=== PATIENT | male | born 1965 | race Two or more races ===

== ENCOUNTER 2019-12-19 20:25 | Emergency (ER) | payer OTHER ==
[~2019-12-19] VITALS: Ht 167.6 cm; Wt 65.8 kg
[2019-12-19] MEDS ORDERED: ONDANSETRON HCL 4 MG/2 ML VIAL IV ONE (20:30)
[2019-12-19] MEDS ORDERED: KETOROLAC TROMETH 30 MG/ML 1ML VIAL IV ONE (20:30)
[2019-12-19] MEDS ORDERED: HYDROmorphone HCL 2 MG/ML VL IV ONE ×2 (20:30→22:15)
[2019-12-19 21:19] LABS: Urine Amorphous Crystal FEW /hpf (None Seen); Urine Bacteria NONE SEEN /hpf (None Seen); Urine Blood 1+ /uL (Negative); Urine Specific Gravity 1.008 (1.001-1.035); Urine WBC 1 /hpf (0 - 3)
[2019-12-19 21:40] LABS: Basophils # (auto) 0 10 ^3/uL (0-0.2); Basophils % (auto) 0.5 % (0.0-2.0); Eosinophils # (auto) 0.1 10 ^3/uL (0-0.8); Eosinophils % (auto) 0.6 % (0.0-7.0); Hematocrit 44.7 % (41.0-53.0); Lymphocytes # (auto) 1.4 10 ^3/uL (0.4-5.4); Lymphocytes % (auto) 16.1 % (10.0-50.0); Mean Corpuscular Hemoglobin 28.5 pg (28.0-32.0); Mean Corpuscular Hgb Conc. 33.5 g/dL (32.0-36.0); Mean Corpuscular Volume 85.1 fL (80.0-100.0); Monocytes # (auto) 0.7 10 ^3/uL (0-1.3); Monocytes % (auto) 7.5 % (0.0-12.0); Neutrophils # (auto) 6.7 10 ^3/uL (1.6-8.6); Neutrophils % (auto) 75.3 % (37.0-80.0); Nucleated Red Blood Cells % 0.1 %; Platelet Count (auto) 257 10^3/uL (140-450); Red Blood Cells 5.26 10^6/uL (4.5-5.90); Red Cell Distribution Width 13.7 % (11.8-14.3); White Blood Cell 8.8 10^3/uL (4.4-10.8)
[2019-12-19 21:56] LABS: Albumin 3.9 g/dL (3.4-5.0); BUN/Creatinine Ratio 12.1; Calcium 8.7 mg/dL (8.5-10.1)
[2019-12-19 21:59] LABS: Bilirubin, Total 0.4 mg/dL (0.2-1.0); Total Protein 7.2 g/dL (6.4-8.2)
[2019-12-19] MEDS ORDERED: POTASSIUM EFFERVESENT TAB 25 MEQ PO ONE (22:30)
[2019-12-19 23:00] VITALS: BP 129/78
== END 2019-12-19 23:21 | disposition home or self-care (01) ==
LOC: ER 20:25 → EDBD 20:25 → ER 23:21
DX: N23 Unspecified renal colic (principal); N20.1 Calculus of ureter; E87.6 Hypokalemia
CPT/HCPCS: 36415; 74176; 80053; 81001; 85025; 96374; 96375; 96376; 99284; J1170; J1885; J2405